=== PATIENT | female | born 1960 | race Caucasian/White ===

== ENCOUNTER 2018-09-13 08:06 | Day surgery (SDC) | payer OTHER ==
[~2018-09-13 08:06] MED LIST: BRIMONIDINE 0.2% OPHTH DROPS 5 ML ONE; BSS/LIDOCAINE/EPINEPHRINE 1 ML SYRINGE ONE; CYCLOPENTOLATE 1% OPHTH DROPS 2 ML ONE; EPINEPHrine 1 MG/ML AMP ONE; KETOROLAC 0.45% OPHTH DROPS ONE; PHENYLEPHRINE 2.5% OPHTH 2 ML DROPS ONE; PROPARACAINE 0.5% OPHTH DROPS 15 ML ONE; TIMOLOL 0.5% OPHTH DROPS ONE; TRIAMCIN/MOXIFLOX OPHTHALMIC 0.6 ML VIAL IO ONE; VANCOMYCIN OPHTHALMI 8MG/0.8ML 8 MG/0.8 ML SYRINGE IO ONE
[2018-09-13] MEDS ORDERED: LACTATED RINGERS 500 ML IV ONE (08:20)
[2018-09-13] MEDS ORDERED: PHENYLEPHRINE 2.5% OPHTH 2 ML DROPS LEFTEYE ONE (08:30)
[2018-09-13] MEDS ORDERED: CYCLOPENTOLATE 1% OPHTH DROPS 2 ML LEFTEYE ONE (08:30)
[2018-09-13] MEDS ORDERED: PROPARACAINE 0.5% OPHTH DROPS 15 ML LEFTEYE ONE (08:30)
[2018-09-13] MEDS ORDERED: KETOROLAC 0.45% OPHTH DROPS LEFTEYE ONE (08:30)
--- NOTE | 2018-09-13 08:50 | ANESTHESIA ---
Pre-Anesthesia VS, & Labs - Diagnosis senile combined cataract left - Procedure left extraction cataract with lens implant Vital Signs: Temp Pulse Resp BP Pulse Ox 36.6 C 61 18 144/73 H 97 09/13/18 08:21 09/13/18 08:21 09/13/18 08:21 09/13/18 08:21 09/13/18 08:21 Height 5 ft 3 in Weight (kg) 82 kg - NPO >8 hours - Is Patient ?: Not Applicable Home Medications and Allergies Atorvastatin Calcium 20 mg PO DAILY 07/19/18 Estrogens, Conjugated [Premarin] 0.625 mg PO DAILY 07/19/18 hydroCHLOROthiazide [Hydrochlorothiazide] 25 mg PO DAILY 07/19/18 Allergies/Adverse Reactions: Allergies Allergy/AdvReac Type Severity Reaction Status Date / Time Penicillins Allergy Anaphylaxis Verified 07/19/18 07:25 Anes History & Medical History - Anesthetic History Anesthesia Complications: reports: No previous complications Family history of Anesthesia Complications: Denies Family history of Malignant Hyperthermia: Denies - Medical History Cardiovascular: reports: Hypertension, High cholesterol Pulmonary: reports: None Gastrointestinal: reports: None Urinary: reports: None Neuro: reports: None Musculoskeletal: reports: None Endocrine/Autoimmune: reports: None Blood Disorders: reports: None Skin: reports: None Smoking Status: Current some day smoker - Surgical History General: Cholecystectomy Gynecologic: Dilation and currettage, Tubal ligation, Hysterectomy Exam General: Alert, Oriented x3, Cooperative, No acute distress Dental: WNL Mouth Openin Fingerbreadth Neck Mobility: Normal Mallampati classification: II Thyromental Distance: greater than 6 cm Respiratory: Lungs clear, Normal breath sounds, No respiratory distress, No accessory muscle use Cardiovascular: Regular rate, Normal S1, Normal S2, No murmurs Mental/Cognitive Status: Alert/Oriented X3, Normal for patient Plan Anesthesia Type: MAC Consent for Procedure(s) Verified and Reviewed: Yes Code Status: Attempt Resuscitation ASA classification: 2-Mild systemic disease Is this case an emergency?: No
[2018-09-13] MEDS ORDERED: BRIMONIDINE 0.2% OPHTH DROPS 5 ML OPTH ONE (09:25)
[2018-09-13] MEDS ORDERED: CHONDR SULF/HYALURONATE SYRINGE IO ONE (09:25)
[2018-09-13] MEDS ORDERED: TIMOLOL 0.5% OPHTH DROPS OPTH ONE (09:25)
[2018-09-13] MEDS ORDERED: BSS/LIDOCAINE/EPINEPHRINE 1 ML SYRINGE IO ONE (09:25)
[2018-09-13] MEDS ORDERED: EPINEPHrine 1 MG/ML AMP IVP ONE (09:25)
[2018-09-13] MEDS ORDERED: VANCOMYCIN OPHTHALMI 8MG/0.8ML 8 MG/0.8 ML SYRINGE IO ONE (09:26)
[2018-09-13] MEDS ORDERED: TRIAMCIN/MOXIFLOX OPHTHALMIC 0.6 ML VIAL IO ONE ×2 (09:26)
[2018-09-13] MEDS ORDERED: MIDAZOLAM 2 MG/2 ML VIAL IVP ONE (09:34)
[2018-09-13] MEDS ORDERED: fentaNYL 100 MCG/2 ML VIAL IVP ONE (09:34)
[2018-09-13 09:53] VITALS: BP 118/64
--- NOTE | 2018-09-13 11:35 | OPERATIVE REPORT ---
DATE OF SERVICE: 09/13/2018 Physician: Max Bills MD PREOPERATIVE DIAGNOSIS: Visually significant cataract, left eye. Cataract surgery was performed on the right eye on 07/19/2018. POSTOPERATIVE DIAGNOSIS: Visually significant cataract, left eye. Cataract surgery was performed on the right eye on 07/19/2018. PROCEDURE: Phacoemulsification with posterior chamber intraocular lens implant, left eye. SURGEON: Max Bills MD ANESTHESIA: Monitored anesthesia care. COMPLICATIONS: None. OPERATIVE INDICATIONS: This is a 57-year-old woman with progressive vision loss in the left eye due to 1+ nuclear sclerotic, 1+ cortical and 2+ posterior subcapsular cataract. Best corrected visual ac uity was 20/20, with glare to 20/80 in the left eye. Indications for surgery are difficulty seeing w ords on a computer screen, difficulty reading, difficulty seeing words, closed captions or game score s on TV, difficulty seeing street signs, difficulty driving in low light or at night, and difficulty driving at night because of headlights from other vehicles. She was consented at length concerning r isks and benefits of cataract surgery, after which she expressed a desire to proceed with surgery. OPERATIVE PROCEDURE: The patient was taken into OR #3 and placed under monitored anesthesia care. A surgical timeout was conducted confirming the correct patient, correct procedure, and correct surgic al site. She was given topical anesthesia, and prepped and draped in the usual sterile fashion. The eye was entered at the 6 and 3 o'clock positions. Intracameral Shugarcaine was injected into the an terior chamber, followed by Viscoat. A continuous-tear curvilinear capsulorrhexis was performed. Th e nucleus was hydrodissected and phacoemulsified. The cortex was evacuated using automated infusion and aspiration. Provisc was injected in the capsular bag, and a 17.5 diopter intraocular lens insert ed in the bag. Approximately 0.8 mL of a mixture of triamcinolone, moxifloxacin and vancomycin was i njected subconjunctivally in the superior quadrant for infection and inflammation prophylaxis. I and A was used to evacuate the viscoelastic materials. The eye was inflated to physiologic pressure usi ng balanced salt solution, and found to be watertight. The patient was taken from the operating room in good condition and given postop instructions. TD: 09/13/2018 09:47
== END 2018-09-13 08:07 | disposition home or self-care (01) ==
LOC: SDS 08:06
PROVIDERS: ATTEND Ophthalmology
PROC: 08RK3JZ Replacement of Left Lens with Synthetic Substitute, Percutaneous Approach (ICD-10-PCS; principal; 2018-09-13 09:30)
DX: H25.812 Combined forms of age-related cataract, left eye (principal); I10 Essential (primary) hypertension; E78.00 Pure hypercholesterolemia, unspecified; F17.200 Nicotine dependence, unspecified, uncomplicated
CPT/HCPCS: 66984; A9270; J3490; V2632